=== PATIENT | male | born 2000 | race Two or more races ===

== ENCOUNTER 2020-07-04 19:16 | Emergency (ER) | payer SELFPAY ==
[2020-07-04] MEDS ORDERED: KETOROLAC TROMETHAMINE 60 MG/2 ML SDV IM ONE (19:39)
--- NOTE | 2020-07-04 20:26 | RADIOLOGY REPORT (SQ) ---
EXAM DESCRIPTION: XR CLAVICLE COMPLETED DATE/TME: 07/04/2020 20:06 CLINICAL HISTORY: 19 years Male Pain COMPARISON: None. TECHNIQUE: RIGHT clavicle, 2 view FINDINGS: No acute fractures or dislocations are identified. No osseous destructive lesions. IMPRESSION: No acute fracture is identified.
--- NOTE | 2020-07-04 20:27 | RADIOLOGY REPORT (SQ) ---
EXAM DESCRIPTION: XR SHOULDER 2 OR MORE VIEWS COMPLETED DATE/TME: 07/04/2020 20:06 CLINICAL HISTORY: 19 years Male Shoulder pain COMPARISON: None. TECHNIQUE: RIGHT shoulder three view FINDINGS: No acute fractures or dislocations identified. No osseous destructive lesions. Acromioclavicular joint appears maintained. IMPRESSION: No acute fracture or dislocation identified.
--- NOTE | 2020-07-04 20:45 | ER Document Report ---
ED Extremity Problem, Upper - General Chief Complaint: Shoulder Pain Stated Complaint: SHOULDER PAIN Time Seen by Provider: 07/04/20 19:25 Primary Care Provider: SERGIO EDWARDS MD [ACTIVE STAFF] - Follow up as needed Mode of Arrival: Ambulatory Information source: Patient, Relative Notes: Patient is a 19-year-old male comes emergency complaint of right shoulder pain. Patient only speaks Arabic but he is here with his cousin who speaks and is interpreting American is second language. She is very good at understanding and communicating for us. 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 For the last 3 months he has had pain and discomfort he has moved here 2 weeks ago because he could not handle construction anymore and has been living with his cousin. Patient states that the pain is gotten to the point where he cannot do anything with his right shoulder. He denies any current known traumatic events besides that one 3 months ago. He states that the pain is anterior shoulder on the lateral aspect of the shoulder and some spasms going on up in the right neck area. Patient denies any other medical problems currently takes no medications. Patient does not smoke or drink or do drugs. TRAVEL OUTSIDE OF THE [place] IN LAST 30 DAYS: No - HPI Patient complains to provider of: Injury, Pain, Right, Shoulder Onset: Other - 3 months Recent injury: Yes Where: Work Quality of pain: Achy, Sharp, Throbbing Severity of pain: Moderate, Constant Pain Level: 3 Arm and Shoulder (Right): 1 - Area of discomfort Associated symptoms: None Exacerbated by: Movement Relieved by: Nothing Similar symptoms previously: Yes Recently seen / treated by doctor: No - Related Data Allergies/Adverse Reactions: No Known Allergies Allergy (Unverified 07/04/20 19:36) Past Medical History - General Information source: Patient, Relative - Social History Smoking Status: Never Smoker Chew tobacco use (# tins/day): No Frequency of alcohol use: None Drug Abuse: None Lives with: Family Family History: Reviewed & Not Pertinent Patient has homicidal ideation: No Review of Systems - Review of Systems Constitutional: No symptoms reported EENT: No symptoms reported Cardiovascular: No symptoms reported Respiratory: No symptoms reported Gastrointestinal: No symptoms reported Genitourinary: No symptoms reported Male Genitourinary: No symptoms reported Musculoskeletal: See HPI, Joint pain, Muscle pain Skin: No symptoms reported Hematologic/Lymphatic: No symptoms reported Neurological/Psychological: No symptoms reported -: Yes All other systems reviewed and negative Physical Exam - Vital signs Vitals: Temp Pulse Resp BP Pulse Ox 98.3 F 63 16 139/72 H 98 07/04/20 19:28 07/04/20 19:28 07/04/20 19:28 07/04/20 19:28 07/04/20 19:28 Interpretation: Hypertensive - Notes Notes: PHYSICAL EXAMINATION: GENERAL: Well-appearing, well-nourished and in no acute distress. HEAD: Atraumatic, normocephalic. NECK: Examination patient cervical spine does show some mild spasms in the right upper trapezius area. He does display full range of motion of cervical spine without any deficits LUNGS: Breath sounds clear to auscultation bilaterally and equal. No wheezes rales or rhonchi. HEART: Regular rate and rhythm without murmurs Musculoskeletal: Examination patient's area concern is his right shoulder area. Palpation does show some tenderness located in the rotator cuff region. He has some mild tenderness associated at the acromioclavicular space. He has increased discomfort and pain with abduction of the shoulder against resistance. He has good lower right arm extremity power against resistance. Good pocket builder strength is noted. Vascular examination is also normal with 2+ ulnar and radial pulses. Good cap refill in nailbeds of the fingers of the right hand. Minimal crepitus is felt on passive range of motion of the shoulder in all planes. NEUROLOGICAL: Normal speech, normal gait. Normal sensory, motor exams PSYCH: Normal mood, normal affect. SKIN: Warm, Dry, normal turgor, no rashes or lesions noted. Course - Re-evaluation Re-evalutation: I explained to patient that this is a possible area of injury is his rotator cuff. Also possibility this is just bursitis in the shoulder and we will try monitor steroid taper along with some muscle relaxers for the spasms in his neck. I have placed him in a sling and have given him the follow-up with an orthopedic doctor if the pain continues. I have explained this through his cousin who interprets into Arabic for us. Patient voiced understanding. 07/05/20 00:51 - Vital Signs Vital signs: Temp Pulse Resp BP Pulse Ox 98.0 F 58 L 16 118/72 97 07/04/20 20:54 07/04/20 20:54 07/04/20 20:54 07/04/20 20:54 07/04/20 20:54 - Laboratory Results Critical Laboratory Results Reviewed: No Critical Results - Radiology Results Critical Radiology Results Reviewed: No Critical Results Procedures - Immobilization Right Shoulder Pre-Proc Neuro Vasc Exam: Normal Immobilizer type: Sling Performed by: PCT Post-Proc Neuro Vasc Exam: Normal Alignment checked and good: Yes Discharge - Discharge Clinical Impression: Bursitis of right shoulder Injury of right rotator cuff Qualifiers: Encounter type: initial encounter Qualified Code(s): S46.001A - Unspecified injury of muscle(s) and tendon(s) of the rotator cuff of right shoulder, initial encounter Condition: Stable Disposition: HOME, SELF-CARE Instructions: Bursitis ([facility]), Rotator Cuff Injury ([facility]) Additional Instructions: X-rays were negative for any acute findings. We will place him in a sling for the next 2 to 3 days given complete rest. I am placing him on a little steroid taper along with a muscle relaxer to see if this helps alleviate his pain and discomfort. If pain continues on you will need to follow-up with orthopedist. I am giving you the name of the orthopedist environmental services worker you may contact his office t o see if he can accommodate you. If you need to establish with a local doctor you may try contacting [facility] I will give you the number for that as well. Ice to the shoulder 3 times a day. And again if the pain continues on you will need to see an orthopedic doctor. Prescriptions: Prednisone 10 mg PO ASDIR 6 Days #1 tab.ds.pk Methocarbamol [Robaxin 750 mg Tablet] 750 mg PO TID PRN #30 tab PRN Reason: Forms: Elevated Blood Pressure Referrals: SERGIO EDWARDS MD [ACTIVE STAFF] - Follow up as needed
[2020-07-04 20:54] VITALS: BP 118/72
== END 2020-07-04 20:57 | disposition home or self-care (01) ==
LOC: ER 19:16
DX: M75.51 Bursitis of right shoulder (principal); S46.001A Unspecified injury of muscle(s) and tendon(s) of the rotator cuff of right shoulder, initial encounter; X50.0XXA Overexertion from strenuous movement or load, initial encounter; Y93.H3 Activity, building and construction; Y99.0 Civilian activity done for income or pay
CPT/HCPCS: 99284; 96372; 73000; 73030; J1885